=== PATIENT | female | born 1945 | race Caucasian/White ===

== ENCOUNTER 2017-02-13 19:42 | Emergency (ER) | payer OTHER ==
[~2017-02-13] VITALS: Ht 162.6 cm; Wt 90.7 kg
[~2017-02-13 19:42] MED LIST: ASPIRIN81 M1 PO; BACTRIM DS 800/1 TAB PO; CLARITIN10 MG PO; GLIPIZIDE10 MG PO; GLUCOPHAGE1000 MG PO; GLUCOTROL XL10 M1 PO; KLOR-CON 88 MEQ PO; LASIX20 MG PO; NEURONTIN300 MG PO; VASOTEC10 MG PO; ZOCOR20 MG PO
[2017-02-13 19:56] VITALS: BP 110/66
--- NOTE | 2017-02-13 21:47 | NUR ---
TO ER BED 7
--- NOTE | 2017-02-13 21:47 | NUR ---
PT FELL LAST WEEK. C/O BACK/LEG AND SHOULDER PAIN. SON FEELS LIKE PT IS NOT THERE SOMETIMES. PAIN UNDER HER RIGHT BREAST SINCE THE FALL WELL. BLOOD SUGAR IN TRIAGE 223 MED HX: DIABETES/HIGH CHOLESTEROL/HTN
--- NOTE | 2017-02-13 22:12 | NUR ---
Patient being evaluated by physician at bedside.
[2017-02-13] MEDS ORDERED: KETOROLAC 60 MG/2 ML VIAL IM ONE (22:20)
--- NOTE | 2017-02-13 22:58 | NUR ---
Patient discharged with v/s stable. Written and verbal after care instructions given and explained. Patient alert, oriented and verbalized understanding of instructions. Ambulatory with steady gait. All questions addressed prior to discharge. ID band removed. Patient advised to follow up with PMD. Rx of ULTRAM 50MG AND MOTRIN 800MG given. Patient educated on indication of medication including possible reaction and side effects. Opportunity to ask questions provided and answered.
[2017-02-13 22:59] VITALS: BP 112/72
== END 2017-02-13 22:58 | disposition home or self-care (01) ==
LOC: MED 19:42
DX: S43.401A Unspecified sprain of right shoulder joint, initial encounter (principal); S53.401A Unspecified sprain of right elbow, initial encounter; E11.9 Type 2 diabetes mellitus without complications; I10 Essential (primary) hypertension; Z88.0 Allergy status to penicillin; Z88.6 Allergy status to analgesic agent; Z86.73 Personal history of transient ischemic attack (TIA), and cerebral infarction without residual deficits; Z79.82 Long term (current) use of aspirin; W19.XXXA Unspecified fall, initial encounter; Y93.89 Activity, other specified; Y92.89 Other specified places as the place of occurrence of the external cause; Y99.8 Other external cause status
CPT/HCPCS: 71010; 73030; 73080; 96372; 99284; J1885